=== PATIENT | female | born 1995 | race African-American/Black ===

== ENCOUNTER 2020-01-21 22:07 | Emergency (ER) | payer OTHER ==
--- NOTE | 2020-01-22 07:08 | RAD ---
LEFT KNEE 4 VIEWS: Date: 01/21/2020 HISTORY: Knee pain with injury. FINDINGS: No evidence of fracture. No osseous abnormality. Mild prepatellar soft tissue fullness. Small joint e ffusion cannot be excluded. IMPRESSION: No acute osseous abnormality identified. Small joint effusion not excluded. POS: AGW
== END 2020-01-21 23:25 | disposition home or self-care (01) ==
LOC: ERS 22:07
DX: O9A.213 Injury, poisoning and certain other consequences of external causes complicating pregnancy, third trimester (principal); S83.92XA Sprain of unspecified site of left knee, initial encounter; X50.9XXA Other and unspecified overexertion or strenuous movements or postures, initial encounter; Z3A.32 32 weeks gestation of pregnancy